=== PATIENT | male | born 1940 | race Caucasian/White ===

== ENCOUNTER 2017-04-04 17:22 | Emergency (ER) | payer MEDICARE, OTHER ==
[2017-04-04] MEDS ORDERED: traMADol 50 MG Tab ONE (18:10)
--- NOTE | 2017-04-05 09:33 | EDM.PDOC ---
ED HPI GENERAL MEDICAL PROBLEM - General Chief Complaint: Lower Extremity Injury/Pain Stated Complaint: injured right thumb Time Seen by Provider: 04/04/17 18:00 Source of Information: Reports: Patient History Limitations: Reports: No Limitations - History of Present Illness INITIAL COMMENTS - FREE TEXT/NARRATIVE: This is a 76yo M who got his right hand caught in a rat trap. He states he was in a lot of pain but denies any difficulty with movement of the hand or thumb. Onset: Sudden Duration: Improving Location: Reports: Upper Extremity, Left Quality: Reports: Ache Improves with: Reports: None Worsens with: Reports: None right thumb Pain Score (Numeric/FACES): 8 - Related Data Allergies Allergy/AdvReac Type Severity Reaction Status Date / Time No Known Allergies Allergy Verified 04/04/17 18:14 Home Meds: Home Meds NK [No Known Home Meds] 04/04/17 [History] Past Medical History HEENT History: Reports: Cataract, Glaucoma Cardiovascular History: Reports: None Respiratory History: Reports: None Gastrointestinal History: Reports: None Musculoskeletal History: Reports: Back Pain, Chronic, Osteoarthritis Neurological History: Reports: None Oncologic (Cancer) History: Reports: None Review of Systems - Review of Systems Review Of Systems: ROS reveals no pertinent complaints other than HPI. ED EXAM, GENERAL - Physical Exam Exam: See Below Exam Limited By: No Limitations General Appearance: Alert, WD/WN, No Apparent Distress Extremities: Other (right thumb bruising at site of compression from trap, full ROM, full movement of digits and wrist) Neurological: Normal Reflexes, No Motor/Sensory Deficits Psychiatric: Normal Affect, Normal Mood Skin Exam: Ecchymosis, Increased Warmth Course - Vital Signs Last Recorded V/S: Last Vital Signs Temp 36.7 C 04/04/17 18:07 Pulse 86 04/04/17 18:07 Resp BP 151/82 H 04/04/17 18:07 Pulse Ox 98 04/04/17 18:07 - Orders/Labs/Meds Meds: Medications Discontinued Medications Generic Name Dose Route Start Last Admin Trade Name Freq PRN Reason Stop Dose Admin Tramadol HCl 500 mg 04/04/17 18:10 Ultram .ROUTE 04/04/17 18:11 .STK-MED ONE Departure - Departure Time of Disposition: 16:50 Disposition: Home, Self-Care 01 Condition: Good Clinical Impression: Contusion Qualifiers: Encounter type: initial encounter Contusion area: hand Laterality: right Qualified Code(s): S60.221A - Contusion of right hand, initial encounter - Discharge Information Instructions: Cryotherapy, [id number] Forms: ED Department Discharge Additional Instructions: Tramadol take one tablet every 6 hours Use ice on the injury for twenty minutes every couple of hours. DO NOT take Motrin when you have taken the tramadol. You are able to use Tylenol as needed for the pain as well. - Problem List Review Problem List Initiated/Reviewed/Updated: Yes - Assessment/Plan Plan: Counseled on supportive care, icing and conservative management and f/u if symptoms persist or worsen. Discussed rest, wrap , ice , elevation and f/u in clinic as needed.
== END 2017-04-04 18:20 | disposition home or self-care (01) ==
LOC: LB.ED 17:22
DX: S60.011A Contusion of right thumb without damage to nail, initial encounter (principal); M19.90 Unspecified osteoarthritis, unspecified site; W23.0XXA Caught, crushed, jammed, or pinched between moving objects, initial encounter
CPT/HCPCS: 99283; A9270

== ENCOUNTER 2019-02-12 08:27 | Day surgery (SDC) | payer MEDICARE ==
[~2019-02-12 08:27] MED LIST: Metoclopramide 10 MG/2 ML SDV IV PRN; Sodium Chloride 0.9% 1,000 ML IV SCH
[2019-02-12] MEDS ORDERED: Propofol 200 MG/20 ML SDV ONE (10:25)
--- NOTE | 2019-02-12 14:53 | OR ---
DATE OF OPERATION: 02/12/2019 PREOPERATIVE DIAGNOSIS: Screening colonoscopy. POSTOPERATIVE DIAGNOSIS: Screening colonoscopy. PROCEDURE: Colonoscopy. ANESTHESIA: MAC. ESTIMATED BLOOD LOSS: None. COMPLICATIONS: None. INDICATION FOR THE PROCEDURE: The patient is a 78-year-old male here today for his first colonoscopy. No family history of colon cancer. No change in bowel habits. No blood in the stool. DESCRIPTION OF PROCEDURE: Informed consent was obtained from the patient. The patient was brought to the operating room and placed on the table in left lateral decubitus position. Monitored anesthesia care was administered. Digital rectal exam was performed and was normal. Colonoscope was then advanced through the anus directed toward the cecum. Cecum was reached, identified by appendiceal orifice and ileocecal valve. Colonoscope was then slowly withdrawn. He did have a few small diverticula in the sigmoid colon. Otherwise, no masses, no polyps, no areas of ischemia or inflammation, no AV malformations. Retroflexion performed in the rectum was also otherwise unremarkable. Colonoscope was then withdrawn. FINDINGS: Mild sigmoid diverticulosis. RECOMMENDATIONS: Would recommend high-fiber diet with lots of water for the diverticula. Otherwise, due to age, would not recommend any further screening colonoscopies. ONDINA/KIM /[id number]
== END 2019-02-12 12:07 | disposition home or self-care (01) ==
LOC: LB.SDS 08:27
PROVIDERS: ATTEND Surgery
DX: Z12.11 Encounter for screening for malignant neoplasm of colon (principal); K57.30 Diverticulosis of large intestine without perforation or abscess without bleeding
CPT/HCPCS: 82962; G0121; J2704; J7030

== ENCOUNTER 2022-12-06 07:53 | Day surgery (SDC) | payer MEDICARE ==
[~2022-12-06 07:53] MED LIST changes: +Lactated Ringers 1,000 ML IV SCH; -Metoclopramide 10 MG/2 ML SDV IV PRN; +Morphine 2 MG/ML SYRINGE IVPUSH PRN; +Ondansetron 4 MG/2 ML SDV IVPUSH PRN; -Sodium Chloride 0.9% 1,000 ML IV SCH
[2022-12-06] MEDS: Lactated Ringers 1,000 ML IV SCH (08:28)
[2022-12-06] MEDS: ceFAZolin 2 GM in Sodium Chloride 0.9% 50 ML IV ONE (09:35)
[2022-12-06] MEDS ORDERED: fentaNYL 100 MCG/2 ML SDV ONE (11:00)
[2022-12-06] MEDS ORDERED: Propofol 200 MG/20 ML SDV ONE (11:00)
[2022-12-06] MEDS ORDERED: Dexamethasone 4 MG/ML SDV ONE (11:00)
[2022-12-06] MEDS ORDERED: ePHEDrine 50 MG/ML SDV ONE (11:00)
[2022-12-06] MEDS ORDERED: Midazolam 1 MG/ML 2 ML SDV ONE (11:00)
[2022-12-06] MEDS ORDERED: Magnesium Sulfate/Water 2 GM/50 ML Premix Bag ONE (11:00)
[2022-12-06] MEDS ORDERED: Ondansetron 4 MG/2 ML SDV ONE (11:00)
[2022-12-06 12:09] VITALS: BP 133/84; PULSE 81
[2022-12-06] MEDS: Acetaminophen/HYDROcodone 325-5 MG Tab PO PRN (12:14)
== END 2022-12-06 13:50 | disposition home or self-care (01) ==
LOC: LB.SDS 07:53
PROVIDERS: ATTEND Surgery
DX: K40.90 Unilateral inguinal hernia, without obstruction or gangrene, not specified as recurrent (principal); D17.6 Benign lipomatous neoplasm of spermatic cord; E11.9 Type 2 diabetes mellitus without complications
CPT/HCPCS: 88302; A9270-GY; C1781; J0690; J1100; J2250; J2405; J2704; J3010; J3475; J7120

== ENCOUNTER 2024-11-16 14:44 | Emergency (ER) | payer MEDICARE ==
[2024-11-16] MEDS: Sodium Chloride 0.9% 1,000 ML IV ONE (15:33)
[2024-11-16 15:35] LABS: BASOPHILS ABSOLUTE AUTO 0.01 K/uL (0.02-0.10); BASOPHILS PERCENT AUTO 0.1 % (0.0-0.5); HEMATOCRIT 44.9 % (40.0-54.0); HEMOGLOBIN 15.5 g/dL (13.0-18.0); LYMPHOCYTES ABSOLUTE AUTO 0.68 K/uL (1.50-4.00); LYMPHOCYTES PERCENT AUTO 6.8 % (20.0-40.0); MEAN CORPUSCULAR HGB CONC 34.5 g/dL (31.0-35.0); MEAN CORPUSCULAR VOLUME 87 fL (76-96); MEAN PLATELET VOLUME 9.8 fL (6.0-10.0); MONOCYTES ABSOLUTE AUTO 1.56 K/uL (0.20-0.80); MONOCYTES PERCENT AUTO 15.6 % (3.0-10.0); NEUTROPHILS ABSOLUTE AUTO 7.76 K/uL (2.00-7.50); NEUTROPHILS PERCENT AUTO 77.5 % (45.0-70.0); PLATELET COUNT,PLT 132 K/uL (150-400); RED BLOOD CELL COUNT 5.17 M/uL (4.50-6.50); RED CELL DISTRIBUTION WIDTH 13.5 % (11.0-16.0)
[2024-11-16 16:07] LABS: C-REACTIVE PROTEIN 32.7 mg/L (<5.0)
[2024-11-16 16:11] LABS: TROPONIN I HIGH SENSITIVITY 75.5 pg/ml (<=60.4)
[2024-11-16 16:13] LABS: A/G RATIO 1.2 (0.8-2.0); ALBUMIN 3.5 g/dL (3.4-5.0); ANION GAP 17.8 mmol/L (5.0-15.0); BILIRUBIN TOTAL 0.7 mg/dL (0.0-1.0); CALCIUM 8.4 mg/dL (8.5-10.1); CARBON DIOXIDE,CO2 22.3 mmol/L (21.0-32.0); CREATININE 1.67 mg/dL (0.70-1.30); EST CRCL DRUG DOSING (CG) 37.43 mL/min; POTASSIUM,K 4.1 mmol/L (3.5-5.1); PROTEIN TOTAL,TP 6.4 g/dL (6.4-8.2); TSH ULTRASENSITIVE 0.815 uIU/mL (0.358-3.740)
[2024-11-16] MEDS: Heparin Sodium 5,000 Units/ML Vial IVPUSH ONE (16:28)
[2024-11-16] MEDS: Heparin Sodium/D5W 25,000 UNITS/500 ML BAG IV SCH (16:30)
[2024-11-16 16:33] LABS: INR 1.2 (1.0-3.5)
[2024-11-16 16:36] LABS: PROTHROMBIN TIME 12.6 sec (9.0-11.5)
[2024-11-16] MEDS: Aspirin 81 MG Tab.Chew PO ONE (16:54)
[2024-11-16 17:45] LABS: APPEARANCE,URINE CLOUDY (CLEAR); COLOR,URINE OTHER
[2024-11-16 17:46] LABS: BILIRUBIN,URINE NEGATIVE (NEGATIVE); GLUCOSE,URINE NEGATIVE (NEGATIVE); KETONES,URINE 15 mg/dL (NEGATIVE); LEUKOCYTE ESTERASE,URINE NEGATIVE (NEGATIVE); NITRITE,URINE NEGATIVE (NEGATIVE); OCCULT BLOOD,URINE LARGE (NEGATIVE); PROTEIN,URINE 100 mg/dL (NEGATIVE); SQUAMOUS EPITHELIAL CELLS,UR FEW /HPF; UROBILINOGEN,URINE 0.2 E.U./dL (0.2-1.0)
[2024-11-16 17:47] LABS: COARSE GRANULAR CASTS,URINE FEW /HPF; HYALINE CASTS,URINE FEW /HPF
== END 2024-11-16 20:35 ==
LOC: LB.ED 14:44
DX: I21.4 Non-ST elevation (NSTEMI) myocardial infarction (principal)
CPT/HCPCS: 36415; 71045; 80053; 81001; 83735; 84443; 84484; 85025; 85610; 85730; 86140; 93005; 96365; 96366; 99285; A9270; J1644